=== PATIENT | female | born 1990 ===

== ENCOUNTER 2019-07-19 13:28 | Emergency (ER) | payer SELFPAY ==
[2019-07-19 13:39] VITALS: BP 131/75; PULSE 84; RESP 18; TEMP 36.4; O2SAT 96; BMI 24.8
--- NOTE | 2019-07-19 14:24 | XRR_ITS ---
PROCEDURE INFORMATION: Exam: XR Chest, 1 View Exam date and time: 07/19/2019 2:36 PM Age: 29 years old Clinical indication: Cough; Additional info: Cough/congestion TECHNIQUE: Imaging protocol: XR of the chest Views: 1 view. COMPARISON: No relevant prior studies available. FINDINGS: Lungs: Unremarkable. No consolidation. Pleural space: Unremarkable. No pleural effusion. No pneumothorax. Heart/Mediastinum: Unremarkable. No cardiomegaly. Bones/joints: Unremarkable. XR/XR chest 1V portable [id number] IMPRESSION: No acute findings.
--- NOTE | 2019-07-19 15:55 | ED_ITS ---
Entered by Niecy Lauren, acting as scribe for Damaso Suárez DO Jul 19, 2019 13:28 HPI - SOB/Dyspnea General: Chief Complaint: Shortness of Breath/Dyspnea Stated Complaint: cough/sob Time Seen by Provider: 07/19/19 15:55 History of Present Illness: HPI Narrative: 29 yo female presents with shortness of breath. Pt states that she ran out of her inhalers 2-3 days ago. pt states that she ran out of her emergencay inhaler this morning. Pt states that her shortness of breath has worsened since being here. Pt states that she doesn't have any fever or productive cough. Pt states that this feels more like her asthma than an illness. MD elicited complaint: shortness of breath Associated symptoms: Deny abdominal pain, chest pain, extremity pain, fever(s), lightheadedness, nausea, palpitations, polydipsia, polyuria or vomiting Review of Systems General: Reports: 10 or more systems reviewed and unremarkable except in HPI and below Const: Denies: fever, chills, body aches, change in appetite or change in weight Eyes: Denies: change in vision, blurry vision, blind spots, photophobia or eye discharge ENMT: Denies: throat pain, uvular edema, enlarged tonsils, painful swallowing or swelling of lips/tongue Card: Denies: chest pain, palpitations, irregular heart rhythm, edema or lightheadedness Resp: Reports: shortness of breath and wheezing; Denies: productive cough or non-productive cough GI: Denies: abdominal pain, nausea, vomiting, vomiting blood, coffee grounds in vomit or difficulty swallowing : Denies: flank pain, difficulty urinating or painful urination Musc: Denies: neck pain, back pain or extremity pain Skin/Breast: Denies: rash, itching, redness, sensitivity to light, skin pain or skin tenderness Neuro: Denies: headache, numbness in extremities, weakness in extremities or changes in sensation Psych: Denies: anxiety, depression, mood swings, panic attacks, sleeping less, sleeping more or hopelessness Endo: Denies: excessive urination, excessive thirst, tired all the time or cold intolerance Carmine/Lymph: Denies: easy bruising, easy bleeding, petechiae or purpura PFSH ED PFSH: Statuses (acute, chronic, etc) shown below reflect problem list status as previously entered and may not be historically accurate Medical History Asthma (Acute) Social History Smoking and tobacco status: former smoker Female Reproductive History: Date of last menstrual period: 07/18/19 Physical Exam Const: COMMON NORMALS: no apparent distress, average body habitus, oriented x3, no limitations, healthy appearing, alert and well nourished HENMT: COMMON NORMALS: normocephalic, head/scalp atraumatic, hearing grossly normal bilaterally, external ears normal, EAC's normal, TM's normal bilaterally, external nose normal, nasal mucous membranes and turbinates normal, moist oral mucous membranes, oropharynx normal, dentition normal and gingiva normal HEAD & SCALP: normocephalic and atraumatic NOSE: external nose normal and nasal mucous membranes and turbinates normal EXTERNAL EAR: Yes external ears normal EXTERNAL AUDITORY CANAL: EAC's normal TYMPANIC MEMBRANE: TM's normal bilaterally THROAT: no uvular edema Eye: COMMON NORMALS: PERRL, EOMs intact bilaterally, conjunctivae normal, no scleral icterus, no papilledema, normal visual devine by confrontation and fundi normal bilaterally CONJUNCTIVA: Yes conjunctivae normal PUPIL: Yes PERRL DIRECT OPHTHALMOSCOPY: Yes no papilledema and Yes fundi normal bilaterally Neck/C-Spine: COMMON NORMALS: full ROM, no lymphadenopathy, supple, no meningeal signs, no JVD, thyroid normal and no carotid bruits THYROID: thyroid normal Chest: COMMONS NORMALS: inspection of chest normal and palpation of chest normal Resp: COMMON NORMALS: normal respiratory effort, no retractions, no use of accessory muscles, clear to auscultation bilaterally and percussion normal AUSCULTATION: clear to auscultation bilaterally PERCUSSION: percussion normal Cardio: COMMON NORMALS: no JVD, regular rate, regular rhythm, S1 normal heart sound, S2 normal heart sound, no gallops, no clicks, no murmurs, no rub and peripheral pulses 2+ throughout RATE: regular rate RHYTHM: regular rhythm HEART SOUNDS: S1 normal and S2 normal PERIPHERAL PULSES: pulses 2+ throughout GI: COMMON NORMALS: normal to inspection, nondistended, normoactive bowel sounds, soft to palpation, non-tender, no hepatosplenomegaly, no masses and no bruits PALPATION: Yes soft and Yes no hepatosplenomegaly : COMMON NORMALS: Yes no CVA tenderness and Yes external appearance normal BLADDER/KIDNEY EXAM: Yes no CVA tenderness Back/Pelvis: COMMON NORMALS: no CVA tenderness, thoracic and lumbar spine normal to inspection, no thoracic nor lumbar tenderness, thoraco-lumbar ROM normal and straight leg raise negative bilaterally Extremity: COMMON NORMALS: normal to inspection, full ROM, normal capillary refill, no joint enlargement, no clubbing, cyanosis or edema, no calf tenderness and no pedal edema Neuro: COMMON NORMALS: oriented x3 SENSORIUM/ORIENTATION: Yes alert MENINGEAL SIGNS: Yes no meningeal signs Skin: COMMON NORMALS: no rashes or lesions noted, no wounds, skin turgor normal, no jaundice, no petechiae and no mottling GENERAL SKIN EXAM: no rashes or lesions noted and turgor normal Course Vital Signs: Vital signs: Vital Signs Temperature 97.6 F 07/19/19 13:39 Pulse Rate 82 07/19/19 16:23 Respiratory Rate 20 H 07/19/19 16:23 Blood Pressure 131/75 07/19/19 13:39 Pulse Oximetry 99 07/19/19 16:23 Discharge Plan Discharge Patient Disposition: Home, Self-Care Clinical Impression: Asthma Qualifiers: Asthma severity: moderate Asthma persistence: persistent Asthma complication type: with acute exacerbation Qualified Code(s): J45.41 - Moderate persistent asthma with (acute) exacerbation Asthma with exacerbation Qualifiers: Asthma severity: moderate Asthma persistence: persistent Qualified Code(s): J45.41 - Moderate persistent asthma with (acute) exacerbation Condition: Stable Prescriptions: New albuterol sulfate 90 mcg/actuation HFA aerosol inhaler 2 inh INHALATION Q6H PRN (Reason: shortness of breath or wheezing) Qty: 8.5 RF: 0 Discharge Orders: Discharge Order (Routine); Ordered 07/19/19 Ordered By: Damaso Suárez Coding Level of Care Code ED Hardware Manager for Chg Fwd Exam Problem Focused The documentation recorded by the Leonidas montgomery Kialy, accurately reflects the service I personally performed and the decisions made by Kamini selby Donald P, Jul 19, 2019 13:28
[2019-07-19] MEDS: ipratropium-albuterol 3 mL Neb INHALATION (16:16)
[2019-07-19 16:19] VITALS: PULSE 77; RESP 20; O2SAT 98
[2019-07-19 16:23] VITALS: PULSE 82; RESP 20; O2SAT 99
[2019-07-19 17:25] VITALS: BP 113/64; PULSE 74; RESP 18; O2SAT 95
== END 2019-07-19 17:26 | disposition home or self-care (01) ==
PROVIDERS: Emergency Provider Family Medicine
DX: J45.41 Moderate persistent asthma with (acute) exacerbation (principal); Z87.891 Personal history of nicotine dependence
CPT/HCPCS: 71045; 94640; 99281